=== PATIENT | male | born 1940 ===

== ENCOUNTER → 2021-06-11 09:53 | Outpatient (BNVA) | payer OTHER, SELFPAY | PROVIDERS: PCP Internal Medicine; Visit Provider Nurse Practitioner Family ==

== ENCOUNTER 2021-09-10 10:15 | Outpatient (REF) | payer OTHER, SELFPAY ==
--- NOTE | 2021-09-10 | EMG_ITS ---
Bilateral tibial and peroneal motor and sensory studies were performed. Bilateral superficial peroneal and sural sensory studies were performed. Bilateral median and lateral plantar sensory studies were performed. Tibial H-reflexes were obtained and paraspinal muscles were tested with a needle. 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 MD BRAULIO Devlin/MODL / [id number]
== END 2021-09-10 10:16 | disposition home or self-care (01) ==
LOC: HO.NEURO 10:15
PROVIDERS: Visit Provider Nurse Practitioner Family
DX: M54.50 Low back pain, unspecified (principal); M79.671 Pain in right foot; M79.672 Pain in left foot; R26.9 Unspecified abnormalities of gait and mobility; R29.6 Repeated falls
CPT/HCPCS: 95886; 95913

== ENCOUNTER → 2021-09-16 09:25 | Outpatient (BNVA) | payer OTHER, SELFPAY | PROVIDERS: PCP Internal Medicine; Visit Provider Nurse Practitioner Family | DX: Z13.89 Encounter for screening for other disorder (principal) ==

== ENCOUNTER → 2022-05-20 09:02 | Outpatient (BNVA) | payer OTHER, SELFPAY | PROVIDERS: PCP Internal Medicine; Visit Provider Psychiatry & Neurology Neurology | DX: G62.9 Polyneuropathy, unspecified (principal) ==

== ENCOUNTER 2022-11-17 10:35 | Outpatient (AMB) | payer OTHER, SELFPAY ==
[2022-11-17 10:36] VITALS: BP 142/78; PULSE 68; O2SAT 96; BMI 23.9
--- NOTE | 2022-11-17 10:36 | A.OFFVIS_ITS ---
Intake Vital Signs 11/17/22 10:36 Height 5 ft 6 in Weight 148 lb 4 oz BMI 23.9 BP 142/78 H Blood Pressure Location Rt brachial Position Sitting Pulse 68 Pulse Source Pulse Oximeter Pulse Oximetry (%) 96 Oxygen Delivery Method Room Air Intake Visit Reasons: 6mo F/u foot test-confirmed Intake Note: Pt presents as a 6 month f/u foot test. Assistant Department Manager Required: No Allergies No Known Allergies Allergy (Verified 11/17/22 10:39) Medication List - Last Reconciled 11/17/22 by Ciara Andrews MD albuterol sulfate 90 mcg/actuation inhalation aspirin 81 mg PO DAILY bupropion HCl 150 mg PO QPM gabapentin 100 - 300 mg (1 - 3 x 100 mg) PO BEDTIME 30 days lisinopril 5 mg PO DAILY lorazepam 0.5 mg PO 1/2 prior to Nerve Conduction Study, august repeat x's 1 PRN; 1 day metoprolol succinate ER 50 mg PO DAILY HPI HPI Comments History of Present Illness Details 82-yr-old male presents for f/u visit. He uses a cane consistently and he can still have falls. His Vit B 12 was in low normal range and was on supplements.He takes magnesium and gabapentin. His back pain is better. He follows up with pain management. His anterior thighs feel weak. His foot pain is better, but the feet can feel cold even though they are not cold to the touch. [facility] Medical History HTN (hypertension) Hyperlipidemia Lumbago Surgical History Hx of carpal tunnel repair Hx of tonsillectomy Family History Father Heart attack Brother Parkinson disease Social History Household Members: None Housing: House Alcohol intake: current Alcohol intake frequency: 0-2 drinks per day Alcohol type: hard liquor Patient Tobacco Use Status: Current everyday Tobacco user Tobacco use type: Cigarette Cigarettes Per Day: 10 Years Smoked: 55 Use of substances other than those prescribed or required for medical reasons: No Physical Exam Vital Signs: Last Vital Signs Pulse 68 11/17/22 10:36 BP 142/78 H 11/17/22 10:36 Pulse Ox 96 11/17/22 10:36 Oxygen Delivery Method Room Air 11/17/22 10:36 BMI result Body Mass Index 23.9 Const General: cooperative and no acute distress Orientation/consciousness: patient oriented x3 HEENT Head: Yes normocephalic Resp Effort & Inspection: normal respiratory effort and able to speak in complete sentences Neuro Other: BLE MS 5-/5 Gait: Slow to stand, short steps, mildly wide based, mildly unsteady especially when going through doorways or turning. 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 Code(s): G62.9 - Polyneuropathy, unspecified (2) Gait difficulty: Code(s): R26.9 - Unspecified abnormalities of gait and mobility (3) Frequent falls: Code(s): R29.6 - Repeated falls (4) Foot pain, bilateral: Code(s): M79.671 - Pain in right foot; M79.672 - Pain in left foot Plan Continue Gabapentin 100-300mg qhs. Magnesium qhs for leg cramps. Discussed fall prevention - conitnue using the cane consistently There is some suspicion for hereditary polyneuropathy, as pt's mother had similar s/s although never had a diagnosis of neuropathy. Medications: New magnesium oxide 400 mg PO DAILY 30 tabs 6RF Refilled gabapentin 100 - 300 mg (1 - 3 x 100 mg) PO BEDTIME 30 days 90 caps 3RF Coding Level of Care Code Est Pt Level 4 (09348) Diagnoses Polyneuropathy G62.9 Gait difficulty R26.9 Frequent falls R29.6 Foot pain, bilateral M79.671; M79.672
== END 2022-11-17 11:03 | disposition home or self-care (01) ==
PROVIDERS: Visit Provider Psychiatry & Neurology Neurology
DX: G62.9 Polyneuropathy, unspecified (principal); R26.9 Unspecified abnormalities of gait and mobility; R29.6 Repeated falls; M79.671 Pain in right foot; M79.672 Pain in left foot
CPT/HCPCS: 99214

== ENCOUNTER → 2022-11-17 10:35 | Outpatient (BNVA) | payer OTHER, SELFPAY | PROVIDERS: Visit Provider Psychiatry & Neurology Neurology ==